=== PATIENT | male | born 1960 | race Caucasian/White ===

== ENCOUNTER 2017-07-28 14:33 | Emergency (ER) | payer BC ==
[~2017-07-28] VITALS: Ht 170.2 cm; Wt 93.0 kg
[2017-07-28] MEDS ORDERED: HYDROCODONE-AP1 EAC6 PO ×2 (14:41→16:00)
[2017-07-28] MEDS ORDERED: XANAX1 MG PO (14:41)
[2017-07-28] MEDS ORDERED: ADVAIR HFA 230M12 GM INH (14:41)
[2017-07-28] MEDS ORDERED: ZOLOFT25 MG PO (14:41)
[2017-07-28] MEDS ORDERED: PROAIR RESPICL90 MCG INH (14:42)
[2017-07-28] MEDS ORDERED: BLOOD PRESSURE (14:43)
[2017-07-28] MEDS ORDERED: IBUPROFEN 800800 M1 PO (16:20)
[2017-07-28 16:43] VITALS: BP 102/54
== END 2017-07-28 16:45 | disposition home or self-care (01) ==
LOC: M.ERS 14:33
DX: S22.060A Wedge compression fracture of T7-T8 vertebra, initial encounter for closed fracture (principal); I10 Essential (primary) hypertension; X58.XXXA Exposure to other specified factors, initial encounter; Y93.89 Activity, other specified; Y92.89 Other specified places as the place of occurrence of the external cause; Y99.8 Other external cause status